=== PATIENT | female | born 1965 | race Caucasian/White ===

== ENCOUNTER 2022-02-24 08:02 | Outpatient (CLI) | payer BC, SELFPAY ==
--- NOTE | 2022-02-24 08:11 | MM_ITS ---
WS: [id number] Bilateral screening 3D tomosynthesis digital mammogram, 02/24/2022 Clinical Data: SCREENING Comparison: 02/25/2021, 06/25/2019, 12/21/2018, 04/17/2018. Findings: The breast parenchymal pattern shows fibroglandular tissue. No spiculated masses or clustered calcifi cations are seen. On the left cc view in the central portion of the breast is a 1.38 cm nodule which appears to be increased in size from 1 year ago. This nodule is not identified on the left MLO view T here are no secondary signs of carcinoma. Right breast is normal MM/[place] [id number] Impression: 1. Left breast nodule identified only on the cc view. 2. Normal right breast 3. Recommend left ML view and left breast ultrasound. BIRADS: 0-Incomplete: Need additional imaging evaluation FOLLOW UP: See Report The CAD frickertron checker was used.
== END 2022-02-24 08:03 | disposition home or self-care (01) ==
LOC: RAD 08:02
PROVIDERS: PCP Family Medicine; Visit Provider Family Medicine
DX: Z12.31 Encounter for screening mammogram for malignant neoplasm of breast (principal)
CPT/HCPCS: 77063; 77067

== ENCOUNTER 2022-03-28 14:30 | Outpatient (CLI) | payer BC, MEDICAID, SELFPAY ==
--- NOTE | 2022-03-28 14:41 | MM_ITS ---
WS: [id number] VIEWS: Compression spot views of the left breast are obtained in the MLO and CC projections as well as the 90 degree lateral view. 3-D tomography was included and all 3 additional views. Comparison made with prior exam of 02/24/2022.. Findings: Smoothly marginated linear soft tissue density seen at the 6:00 position is identified on the additio nal views also. No architectural distortion or suspicious calcification. Further workup with renal u ltrasound are recommended. Scattered fibroglandular densities noted throughout the left breast. MM/[id number] Impression: BI-RADS: 0-Incomplete: Need additional imaging evaluation FOLLOW-UP: Need Additional Imaging This mammogram was also analyzed by the Computer Aided Detection System [employer].
--- NOTE | 2022-03-28 14:41 | US_ITS ---
WS: [id number] Exam: US breast LT limited* [id number] Date/Time of Exam: 03/28/2022 4:02 PM Reason For Exam: ABNORMAL MAMMO Regional ultrasound of the 6:00 position in the left breast is performed. There was no sign of suspicious solid mass or nodule missed region. No cysts were demonstrated. Moder ately dense breast parenchyma noted in this area. Recommendations: Continue yearly screening mammography. US/US breast LT limited* [id number] IMPRESSION: 1. No suspicious ultrasound finding at the 6:00 position in the left breast.
== END 2022-03-28 14:31 | disposition home or self-care (01) ==
LOC: RAD 14:30
PROVIDERS: PCP Family Medicine; Visit Provider Family Medicine
DX: R92.8 Other abnormal and inconclusive findings on diagnostic imaging of breast (principal)
CPT/HCPCS: 76642; 77061; G0279

== ENCOUNTER → 2023-08-30 08:44 | Outpatient (BNVA) | payer BC, SELFPAY | PROVIDERS: PCP Family Medicine; Visit Provider Family Medicine | DX: E78.5 Hyperlipidemia, unspecified (principal); F41.9 Anxiety disorder, unspecified | CPT/HCPCS: 80053; 80061 ==